=== PATIENT | male | born 1990 | race Caucasian/White ===

== ENCOUNTER → 2018-08-22 17:53 | Outpatient (CLI) | payer OTHER, SELFPAY ==
[2018-08-22 18:45] LABS: Basophils # 0.1 K/mm3 (0-0.2); Basophils % 0.8 % (0.1-2.0); Eosinophils # 0.3 K/mm3 (0.0-0.4); Eosinophils % 2.7 % (0.1-12.0); Hematocrit 43.1 % (42.0-52.0); Hemoglobin 14.1 g/dL (14.1-18.0); Lymphocytes # 2.6 K/mm3 (0.7-4.5); Lymphocytes % 25.1 % (10-50); Mean Corpuscular HGB Conc 32.6 g/dL (31.8-35.4); Mean Corpuscular Hemoglobin 29.5 pg (27.0-31.2); Mean Corpuscular Volume 90.3 fl (80-94); Monocytes # 0.8 K/mm3 (0.1-1.0); Neutrophils # 6.4 K/mm3 (1.8-7.8); Neutrophils % 63.4 % (37.0-80.0); Platelet Count 338 K/mm3 (142-424); Red Blood Count 4.77 M/mm3 (4.60-6.20); Red Cell Distribution Width 13.8 % (11.5-17.5); White Blood Count 10.2 K/mm3 (4.8-10.8)
[2018-08-22 19:22] LABS: Alanine Aminotransferase 57 U/L (12-78); Albumin Level 3.5 gm/dL (3.4-5.0); Albumin/Globulin Ratio 0.8 (1.1-1.8); Alkaline Phosphatase 78 U/L (46-116); Anion Gap 12.8 mEq/L (5-15); Aspartate Amino Transferase 24 U/L (15-37); Bilirubin,Total 1.4 mg/dL (0.2-1.0); Blood Urea Nitrogen 11 mg/dL (7-18); Calcium 8.5 mg/dL (8.5-10.1); Carbon Dioxide 28 mmol/L (21.0-32.0); Chloride 102 mmol/L (98-107); Chol/HDL Ratio 5.8 (1-3.5); Cholesterol 173 mg/dL (140-200); Creatinine,Serum 0.76 mg/dL (0.70-1.30); Estimated Glomerular Filt Rate 120 ml/min (>60); GFR (African American) 146 ML/MIN (>60); Globulin 4.2 gm/dl (1.3-3.2); Glucose 110 mg/dL (74-106); HDL Cholesterol 30 mg/dL (27-67); LDL Cholesterol 105 mg/dL (0-130); Potassium 3.8 mmoL/L (3.5-5.1); Sodium 139 mmol/L (136-145); T4 (Thyroxine) 9.6 ug/dl (4.7-13.3); Thyroid Stimulating Hormone 2.54 uIU/ml (0.358-3.740); Total Protein,Serum 7.7 gm/dL (6.4-8.2); Triglycerides 190 mg/dL (30-200); VLDL Cholesterol 38 mg/dL (0-40)
[2018-08-25 05:34] LABS: Vitamin D 25 Hydroxy 17.4 ng/mL (30.0-100.0)
== END ==
PROVIDERS: Visit Provider Physician Assistant
DX: E66.01 Morbid (severe) obesity due to excess calories (principal); Z68.43 Body mass index [BMI] 50.0-59.9, adult
CPT/HCPCS: 80053; 80061; 82652; 84436; 84443; 85025

== ENCOUNTER → 2018-09-27 13:29 | Outpatient (CLI) | payer OTHER, SELFPAY ==
--- NOTE | 2018-09-27 13:31 | CA_ITS ---
PROCEDURE: 2-D M-mode and color Doppler study INDICATIONS FOR THE TEST: Chest pain COPD Heart Murmur Tobacco Smoking Palpitations Fatigue Syncope Edema Hypertension+Diabetes Mellitus Rheumatic Fever SOB KRAMER Obesity+Hyperlipidemia Family History HD Additional History PATIENT INFORMATION HEIGHT: 68 WEIGHT:463 GENDER: Male B/P:158/94 2-D/M-MODE INTERPRETATION: 2-D MEASUREMENTS OBSERVED VALUES IN CMS Right Ventricular Dimension (RVDd) 2.6 Interventricular Septum (Thickness)(IVsd) 1.2 Left Ventricular Internal Dimensions(LVIDd) 4.8 Left Ventricular Posterior Wall (Thickness)(LVPWd) 1.2 Aortic Root 3.2 Aortic Cusp Separation 2.2 Left Atrial Dimensions (LAD) 4.2 2D 1. Technically difficult and poor study because of the patient's factor and poor acoustic windows 2. Left atrium is mildly enlarged, left ventricle is normal size, mild concentric left ventricular visually estimated ejection fraction 55% with no wall motion abnormality. 3. The right atrium and right ventricle are mildly enlarged with normal contractility. 4. The aortic valve is not well visualized 5. The mitral and tricuspid valvular grossly normal. 6. The pulmonic valve is poorly present. 7. No significant pericardial effusion noted. DOPPLER INTERROGATION: Doppler interrogation of the aortic, mitral and tricuspid valvular presence of mild mitral and tricuspid regurgitation, tricuspid regurgitation jet velocity is inadequate for calculation of the right ventricular systolic pressure, diastolic parameters are inconclusive. CONCLUSION: 1. Mildly enlarged left atrium, normal left ventricular size, mild concentric left ventricular hypertrophy, visually estimated ejection fraction 55% with no regional wall motion abnormality. Endocardial subsequent poorly visualized. Diastolic parameters are inconclusive. 2. Mildly enlarged right ventricle with normal contractility. 3. Mild mitral and tricuspid regurgitation 4. No significant pericardial effusion noted.
== END ==
PROVIDERS: PCP Emergency Medicine; Visit Provider Physician Assistant
DX: I10 Essential (primary) hypertension (principal)
CPT/HCPCS: 93306

== ENCOUNTER → 2021-07-05 14:21 | Outpatient (CLI) | payer MEDICAID, SELFPAY ==
--- NOTE | 2021-07-05 14:24 | CA_ITS ---
APPROVED REPORT Left Lower Extremity Venous Study for DVT. Administrative Supervisor: CT Indications Lower Extremity Edema: Left swelling left leg Vein Imaging EIV (L): Not Visualized CFV (L): Not Visualized SFJ (L): Not Visualized FEM (L): Not Visualized POP (L): Compressible DFV (L): Not Visualized PTV (L): Not Visualized GSV (L): Compressible SSV (L): Not Visualized Peroneals (L):Not Visualized GAS (L): Compressible Findings Very Limited exam due to extreme body habitus. Pt >500lbs. GSV, small portion of Pop vein and calf veins visualized, these appear to be compressible. Dr's office notified. Conclusion Very Limited exam due to extreme body habitus. Pt >500lbs. GSV, small portion of Pop vein and calf veins visualized, these appear to be compressible. 's office notified. Electronically signed by : Petey Jeffrey MD 07/06/2021 18:46:29
--- NOTE | 2021-07-05 15:06 | XR_ITS ---
PROCEDURE: XR CHEST 2V CLINICAL HISTORY: shortness of breath If COMPARISON: No exams were available for comparison FINDINGS: The cardiomediastinal silhouette and pulmonary vascularity are within normal limits. The lungs are clear without infiltrates, suspicious nodules, or pleural effusions. No acute bony abnormalities. IMPRESSION: No acute findings. Dictated by: Petey Jeffrey MD 07/06/2021 07:53 Petey Jeffrey MD in [facility] 07/06/2021 07:53
[2021-07-05 16:00] LABS: Basophils # 0.1 K/mm3 (0-0.2); Basophils % 0.5 % (0.1-2.0); Eosinophils # 0.2 K/mm3 (0.0-0.4); Eosinophils % 2.4 % (0.1-12.0); Hematocrit 43.2 % (42.0-52.0); Hemoglobin 14.2 g/dL (14.1-18.0); Lymphocytes # 1.8 K/mm3 (0.7-4.5); Lymphocytes % 19.7 % (10-50); Mean Corpuscular HGB Conc 32.8 g/dL (31.8-35.4); Mean Corpuscular Hemoglobin 30.1 pg (27.0-31.2); Mean Corpuscular Volume 91.8 fl (80-94); Mean Platelet Volume 6.8 fl (7.4-10.4); Monocytes # 0.8 K/mm3 (0.1-1.0); Monocytes % 8.7 % (1.7-9.3); Neutrophils # 6.2 K/mm3 (1.8-7.8); Neutrophils % 68.6 % (37.0-80.0); Platelet Count 321 K/mm3 (142-424); Red Cell Distribution Width 13.5 % (11.5-17.5); White Blood Count 9.1 K/mm3 (4.8-10.8)
[2021-07-05 16:10] LABS: Prothrombin Time 11.3 seconds (10.1-12.5)
[2021-07-05 16:14] LABS: D-Dimer 0.68 ug/mL (0.0-0.5)
[2021-07-05 22:53] LABS: Alanine Aminotransferase 60 U/L (12-78); Albumin Level 3.7 g/dl (3.5-5.0); Alkaline Phosphatase 61 U/L (38-126); Anion Gap 11.2 mEq/L (5-15); Aspartate Amino Transferase 47 U/L (17-59); Bilirubin,Total 0.8 mg/dl (0.2-1.3); Blood Urea Nitrogen 9 mg/dl (9-20); Calcium 9.1 mg/dl (8.4-10.2); Carbon Dioxide 27 mmol/L (22.0-30.0); Chloride 103 mmol/L (98-107); Chol/HDL Ratio 4.2 (1-3.5); Cholesterol 193 mg/dl (140-200); Estimated Glomerular Filt Rate 192 ml/min (>60); GFR (African American) 232 ML/MIN (>60); Globulin 3.8 g/dL (1.3-3.2); Glucose 107 mg/dl (74-100); HDL Cholesterol 46 mg/dl (40-60); Potassium 4.2 mmoL/L (3.5-5.1); Sodium 137 mmol/L (136-145); Total Protein,Serum 7.5 g/dl (6.3-8.2); Triglycerides 95 mg/dl (30-150); VLDL Cholesterol 19 mg/dL (0-40)
[2021-07-05 23:04] LABS: Direct LDL Cholesterol 127.75 mg/dL (100-129)
[2021-07-05 23:23] LABS: Thyroid Stimulating Hormone 3.51 uIU/mL (0.465-4.68)
[2021-07-06 08:46] LABS: NT Pro Brain Natriuretic Pep. 40.8 pg/mL (0-125)
== END ==
PROVIDERS: PCP Physician Assistant; Visit Provider Physician Assistant
DX: R06.02 Shortness of breath (principal); M79.89 Other specified soft tissue disorders; R79.89 Other specified abnormal findings of blood chemistry; E66.01 Morbid (severe) obesity due to excess calories; Z68.45 Body mass index [BMI] 70 or greater, adult
CPT/HCPCS: 36415; 71046; 80053; 80061; 82306; 83880; 84443; 85025; 85378; 85610; 93971

== ENCOUNTER → 2021-07-18 09:26 | Outpatient (CLI) | payer MEDICAID, SELFPAY ==
--- NOTE | 2021-07-18 09:27 | CA_ITS ---
APPROVED REPORT EXAM: Comprehensive 2D, Doppler, and color-flow Echocardiogram Manager Center: [facility] CRT Ht: 5 ft 8 in Wt: 501lbs BSA: 3.02 BP: 180/115 mmHg Indications: Shortness of Breath, Morbid Obesity, Peripheral Edema LIMITED EXAM DUE TO EXTREME BODY HABITUS 2 techs scanned pt 2D Dimensions LVOT 2.09 cm (M/F) 1.5-2.5 M-Mode Dimensions RVDd 2.57 cm (0.9-2.6) LA Diam 4.03 cm (1.9-4.0) LVDd 5.52 cm (3.5-5.7) Ao Diam 4.14 cm (2.0-3.7) LVDs 4.18 cm (3.5-5.7) IVSd 1.86 cm (0.6-1.1) PWd 1.07 cm (0.6-1.1) EF (Teich) 47.70% FS 24.30% EDV (Teich) 148.70 mL ESV (Teich) 77.70 mL LV Diastology E Decel Time 260.00 (160-240 msec) E/A Ratio 4.86 MED E' 7.80 (< 7 cm/sec) MED A' 10.60 cm/s E'/MED E' Ratio 10.77 (>14) LAT E' 11.50 (<10 cm/sec) LAT A' 10.70 cm/s E/LAT E' Ratio 7.30 (>14) Aortic Valve AoV Peak Guille. 129.00 (50-130 cm/s) AO Peak GR. 6.70 mmHg AO Mean GR. 3.40 (<5 mmHg) AO VTI 25.07 (18-25 cm) Mitral Valve MV E Max Guille. 84.00 (40-130 cm/s) MV A Velocity 17.00 (40-130 cm/s) E/A Ratio 4.86 MV Decel. Time 260.00 (160-240 ms) MV PHT 76.00 ms Pulmonary Valve PV Peak Velocity 78.00 (50-150 cm/s) Tricuspid Valve TR P. Velocity 149.00 cm/s RAP Estimate 10.00 mmHg RVSP 18.90 mmHg Left Ventricle Technically extremely difficult study, valvular structure and endocardial surfaces are not well visualized. Probably preserved left ventricular systolic function. The study is suboptimal for assessment of wall motion abnormalities. Right Ventricle Right-sided chambers are not well visualized. Aortic Valve Aortic valve is not well-visualized. Mitral Valve Mitral valve is not well-visualized, there is no mitral stenosis. Tricuspid Valve Tricuspid valve is not well visualized Pulmonic Valve Pulmonic valve is poorly visualized Great Vessels Aortic root is normal size. Inferior vena cava is not visualized. Pericardium No significant pericardial effusion noted. Conclusion 1. Technically very difficult and poor study, probably preserved left ventricular systolic function as described above. 2. The study is suboptimal for assessment of valvular functions. 3. No significant pericardial effusion noted. Electronically signed by : Marvin York MD 07/18/2021 21:25:17
== END ==
PROVIDERS: PCP Physician Assistant; Visit Provider Physician Assistant
DX: R06.02 Shortness of breath (principal)
CPT/HCPCS: 93306

== ENCOUNTER → 2021-11-10 16:00 | Outpatient (CLI) | payer MEDICAID, SELFPAY | PROVIDERS: Visit Provider Physician Assistant | DX: L08.9 Local infection of the skin and subcutaneous tissue, unspecified (principal); L03.116 Cellulitis of left lower limb; L02.416 Cutaneous abscess of left lower limb; T14.8XXA Other injury of unspecified body region, initial encounter; B95.8 Unspecified staphylococcus as the cause of diseases classified elsewhere | CPT/HCPCS: 87070; 87077; 87186; 87205 ==

== ENCOUNTER → 2022-03-09 08:59 | Outpatient (CLI) | payer MEDICAID, SELFPAY ==
--- NOTE | 2022-03-09 09:02 | US_ITS ---
FINAL REPORT CLINICAL HISTORY: cellulitis BLE,HTN,OBESITY FINDINGS: BILATERAL ANKLE BRACHIAL INDICES Technically limited study secondary to patient's body habitus. Pressure indices are as follows are: RIGHT LOWER EXTREMITY Ankle brachial pressure index: 1.2 COMMENTS: Normal LEFT LOWER EXTREMITY Ankle brachial pressure index: 1.0 COMMENTS: Normal IMPRESSION: No evidence of significant obstructive peripheral vascular disease of the lower extremities. Reviewed, Interpreted and Dictated by Oliver Veloz III, MD Transcribed by Eusebia Golden Authenticated and [facility]
--- NOTE | 2022-03-09 11:46 | CA_ITS ---
FINAL REPORT CLINICAL HISTORY: cellulitis BLE,OBESITY PT WEIGHS 550 POUNDS FINDINGS: Color Doppler, duplex Doppler and compression sonography of the bilateral lower extremities was performed. The left peroneal vein was not visualized. There is no evidence of deep venous thrombosis or superficial venous thrombosis from the level of the groin to the calf. The deep veins are patent and compressible. IMPRESSION: No evidence of deep venous thrombosis or superficial venous thrombosis bilateral lower extremities. Reviewed, Interpreted and Dictated by Oliver Veloz III, MD Transcribed by Barbara Mason Authenticated and [facility]
== END ==
PROVIDERS: PCP Physician Assistant; Visit Provider Physician Assistant
DX: L03.115 Cellulitis of right lower limb (principal); L03.116 Cellulitis of left lower limb
CPT/HCPCS: 93923; 93970

== ENCOUNTER 2022-05-30 09:30 | Outpatient (RCR) | payer MEDICAID, SELFPAY ==
--- NOTE | 2022-03-21 16:27 | HMH.PTOPWND ---
Rehab Outpt Wound Evaluation Rehab OP Wound Evaluation Start: 03/21/22 15:46 Freq: Status: Active Protocol: Document 03/21/22 16:20 JANESSA (Rec: 03/21/22 16:27 [email or web address] [id number]) Electronically Signed By Evin Pretty, PT 03/21/22 16:20 Subjective/History History History This is the initial wound care evaluation for Clyde Clark. Pt is a 31 y/o male eferred to Wound clinic for cellulitis and venous stasis ulcers. Pt' s mother reports wound began ~ 1 month ago. Pt mother reports unsure of beginning because pt hid it from her . Pt mother reports 2 rounds of ABX w/ diagnosis of MRSA in wound culture. Mother reports topical application of silvadene prescribed by provider now. Subjective Subjective Pt reports c/o tenderness Wound Eval Wound Left Lower Lateral Calf Wound Type Stasis Ulcer Is This a Chronic Wound Yes Wound Length (cm) 7 Wound Width (cm) 7 Wound Bed Appearance [place] Percentage Granulated (%) 100 Wound Margins Description Indistinct Surrounding Tissue Appearance [place] Surrounding Tissue Temperature Warm Drainage Description Serous Drainage Amount Small Drainage Odor Slight Odor Dressing Status Open to Air Wound Topical Solution/Irrigant Saline Irrigant Primary Dressing Gauze Roll/Wrap Comment eucerin and kerlix Wound Debridement Method Forceps,Gauze,Mechanical Wound Debridement Amount of Tissue Moderate Removed Wound Debridement Result Healthy Tissue Revealed Dressing Change Patient Tolerance Tolerated Well Wound Problems/Impairments Impairments Problems/Impairmments Wound Care Needs,Subjective C/ O Pain,Impaired Self Care/Self Management Prognosis Rehab Potential Fair Clinical Impression Consistent with Diagnosis Yes Short Term Goals Number of Weeks 4 Decrease Lymphedema Yes: 2 cm Decrease Wound Area Yes: 50% Mcfp Goals Number of Weeks 8 Decreased Palpation Tenderness Yes Decrease Lymphedema Yes: 4 Decrease Wound Area Yes: 75 Decrease Drainage Yes: minimal Patient to be Ind w/ Donning/D
== END 2022-05-30 09:35 | disposition home or self-care (01) ==
LOC: PT 09:30
PROVIDERS: PCP Physician Assistant; Visit Provider Physician Assistant
DX: L03.116 Cellulitis of left lower limb (principal); L03.115 Cellulitis of right lower limb
CPT/HCPCS: 29580; 97140; 97162; 97164; 97597; 97598

== ENCOUNTER → 2023-03-08 12:00 | Outpatient (CLI) | payer MEDICAID, SELFPAY ==
[2023-03-08 12:33] LABS: Alanine Aminotransferase 71 U/L (12-78); Albumin Level 3.8 g/dl (3.5-5.0); Albumin/Globulin Ratio 0.9 (1.1-1.8); Alkaline Phosphatase 72 U/L (38-126); Anion Gap 13.2 mEq/L (5-15); Aspartate Amino Transferase 52 U/L (17-59); Basophils % 0.4 % (0.1-2.0); Bilirubin,Total 1.5 mg/dl (0.2-1.3); Blood Urea Nitrogen 14 mg/dl (9-20); Calcium 8.7 mg/dl (8.4-10.2); Carbon Dioxide 32 mmol/L (22.0-30.0); Chloride 99 mmol/L (98-107); Chol/HDL Ratio 4.7 (1-3.5); Cholesterol 175 mg/dl (140-200); Eosinophils # 0.2 K/mm3 (0.0-0.4); Eosinophils % 3.1 % (0.1-12.0); Estimated Glomerular Filt Rate 154 ml/min (>60); GFR (African American) 187 ML/MIN (>60); Globulin 4.3 g/dL (1.3-3.2); Glucose 108 mg/dl (74-100); HDL Cholesterol 37 mg/dl (40-60); Hematocrit 44.1 % (42.0-52.0); Hemoglobin 14.3 g/dL (14.1-18.0); Lymphocytes # 1.8 K/mm3 (0.7-4.5); Mean Corpuscular HGB Conc 32.3 g/dL (31.8-35.4); Mean Corpuscular Hemoglobin 28.3 pg (27.0-31.2); Mean Corpuscular Volume 87.6 fl (80-94); Mean Platelet Volume 8.8 fl (7.4-10.4); Monocytes # 0.6 K/mm3 (0.1-1.0); Neutrophils # 4.8 K/mm3 (1.8-7.8); Neutrophils % 64.4 % (37.0-80.0); Platelet Count 269 K/mm3 (142-424); Potassium 4.2 mmoL/L (3.5-5.1); Red Blood Count 5.04 M/mm3 (4.60-6.20); Red Cell Distribution Width 14.1 % (11.5-17.5); Sodium 140 mmol/L (136-145); Total Protein,Serum 8.1 g/dl (6.3-8.2); Triglycerides 92 mg/dl (30-150); VLDL Cholesterol 18 mg/dL (0-40); White Blood Count 7.4 K/mm3 (4.8-10.8)
[2023-03-08 12:44] LABS: Direct LDL Cholesterol 114.29 mg/dL (100-129)
[2023-03-08 12:53] LABS: 25-OH Vitamin D, Total < 12.8 ng/mL (30-100)
[2023-03-08 13:03] LABS: Thyroid Stimulating Hormone 2.99 uIU/mL (0.465-4.68)
[2023-03-08 13:54] LABS: Hemoglobin A1C 5.5 % (4.0-6.0)
== END ==
PROVIDERS: PCP Physician Assistant; Visit Provider Physician Assistant
DX: I10 Essential (primary) hypertension (principal); R73.03 Prediabetes; E55.9 Vitamin D deficiency, unspecified
CPT/HCPCS: 80053; 80061; 82306; 83036; 84443; 85025